=== PATIENT | male | born 1995 | race Caucasian/White ===

== ENCOUNTER 2017-08-07 17:02 | Emergency (ER) | payer BC, MEDICAID ==
[~2017-08-07] VITALS: Ht 162.6 cm; Wt 62.6 kg
[2017-08-07 17:23] VITALS: BP 138/87
--- NOTE | 2017-08-07 17:24 | NUR ---
PT'S BANDAGE REMOVED. NON ADHERENT DRESSING APPLIED, WITH FLUFFY GAUZE AND ROLLER GAUZE SECURED WITH TAPE. PT TOLERATED WELL. PT SENT TO LOBBY TO WAIT FOR BED/CHAIR FOR LACERATION REPAIR.
--- NOTE | 2017-08-07 19:34 | NUR ---
PT TAKEN TO CHAIR D
--- NOTE | 2017-08-07 19:37 | NUR ---
Dr. Mason evaluating patient.
[2017-08-07] MEDS ORDERED: LIDOCAINE/EPI 2% 1:100000 20 ML VIAL INJ ONE (19:40)
[2017-08-07] MEDS ORDERED: BACITRACIN OINT 500 UNITS/GM PKT TP ONE (19:40)
--- NOTE | 2017-08-07 21:33 | NUR ---
Patient discharged with v/s stable. Written and verbal after care instructions given and explained. Patient alert, oriented and verbalized understanding of instructions. Ambulatory with steady gait. All questions addressed prior to discharge. ID band removed. Patient advised to follow up with PMD. Rx of Neosporin and Ibuprofen given. Patient educated on indication of medication including possible reaction and side effects. Opportunity to ask questions provided and answered.
[2017-08-07 21:42] VITALS: BP 109/70
== END 2017-08-07 21:33 | disposition home or self-care (01) ==
LOC: MED 17:02
DX: S51.812A Laceration without foreign body of left forearm, initial encounter (principal); W27.8XXA Contact with other nonpowered hand tool, initial encounter; Y93.89 Activity, other specified; Y92.89 Other specified places as the place of occurrence of the external cause; Y99.8 Other external cause status
CPT/HCPCS: 12001; 90471; 90715; 99283; J2001

== ENCOUNTER 2017-08-18 17:15 | Emergency (ER) | payer BC, MEDICAID ==
[~2017-08-18] VITALS: Ht 167.6 cm; Wt 68.0 kg
[2017-08-18 17:34] VITALS: BP 144/83
--- NOTE | 2017-08-18 17:45 | NUR ---
22/M presents to ED for suture removal to left forearm. Pt had sutures placed 12 days ago. Pt states he couldn't come on Tuesday for removal. Denies pain. Denies drainage or erythema. Awake and alert appropriate to age. VSS. Hx denies
[2017-08-18] MEDS ORDERED: BACITRACIN OINT 500 UNITS/GM PKT TP ONE (18:11)
[2017-08-18 18:18] VITALS: BP 144/83
--- NOTE | 2017-08-18 18:19 | NUR ---
Patient discharged with v/s stable. Written and verbal after care instructions given and explained. Patient verbalized understanding. Ambulatory with steady gait. All questions addressed prior to discharge. Advised to follow up with PMD.
== END 2017-08-18 18:18 | disposition home or self-care (01) ==
LOC: MED 17:15
DX: S81.812D Laceration without foreign body, left lower leg, subsequent encounter (principal); X58.XXXD Exposure to other specified factors, subsequent encounter
CPT/HCPCS: 99281; J7030